=== PATIENT | male | born 1960 | race African-American/Black ===

== ENCOUNTER 2017-10-18 20:55 | Inpatient (IN) | payer OTHER ==
[2017-10-18] MEDS: SOD CHLORIDE 0.9% 1,000 ML IV (21:49)
[2017-10-18] MEDS: METOCLOPRAMIDE 10 MG INJ IV (21:49)
[2017-10-18 21:54] LABS: ADD MAN DIFF? NO
[2017-10-18 21:56] LABS: BASOPHILS % 0.4 % (0.0-2.0); EOSINOPHILS # 0.1 10^3/ul (0.0-0.5); EOSINOPHILS % 0.8 % (0.0-7.0); HEMOGLOBIN 11.6 g/dl (14.0-18.0); LYMPHOCYTES # 1.3 10^3/ul (0.8-2.9); LYMPHOCYTES % 12.4 % (15.0-51.0); MEAN CORPUSCULAR HEMOGLOBIN 28.6 pg (29.0-33.0); MEAN CORPUSCULAR HGB CONC 31.4 g/dl (32.0-37.0); MEAN CORPUSCULAR VOLUME 91.1 fl (82.0-101.0); MEAN PLATELET VOLUME 10.1 fl (7.4-10.4); MONOCYTE # 0.4 10^3/ul (0.3-0.9); MONOCYTES % 3.6 % (0.0-11.0); NEUTROPHIL # 8.9 10^3/ul (1.6-7.5); NEUTROPHILS % 82.6 % (39.0-77.0); PLATELET COUNT 347 10^3/UL (140-415); RED BLOOD COUNT 4.06 10^6/ul (4.70-6.10)
[2017-10-18 21:56] LABS: WHITE BLOOD COUNT 10.8 10^3/ul (4.8-10.8)
[2017-10-18 21:59] LABS: ADD UMIC NO; UR ASCORBIC ACID NEGATIVE (NEGATIVE); UR BILIRUBIN (Dip) NEGATIVE (NEGATIVE); UR BLOOD (Dip) NEGATIVE (NEGATIVE); UR CLARITY CLEAR (CLEAR); UR COLOR STRAW (YELLOW); UR GLUCOSE (Dip) NEGATIVE (NEGATIVE); UR KETONES (Dip) TRACE mg/dL (NEGATIVE); UR LEUKOCYTE ESTERASE (Dip) NEGATIVE Leu/ul (NEGATIVE); UR NITRITE (Dip) NEGATIVE (NEGATIVE); UR SPECIFIC GRAVITY (Dip) 1.012 (1.003-1.030); UR TOTAL PROTEIN (Dip) NEGATIVE (NEGATIVE); UR UROBILINOGEN (Dip) NEGATIVE (NEGATIVE)
[2017-10-18] MEDS: ONDANSETRON 4 MG INJ IV (21:59)
[2017-10-18 22:18] LABS: ALANINE AMINOTRANSFERASE 31 IU/L (13-69); ALBUMIN 4.9 g/dl (3.3-4.9); ALBUMIN/GLOBULIN RATIO 1.22; ALKALINE PHOSPHATASE 109 IU/L (42-121); ANION GAP 19 (8-16); ASPARTATE AMINO TRANSFERASE 38 IU/L (15-46); BILIRUBIN,INDIRECT 0.2 mg/dl (0-1.1); BILIRUBIN,TOTAL 0.2 mg/dl (0.2-1.3); BLOOD UREA NITROGEN 21 mg/dl (7-20); CARBON DIOXIDE 31 mmol/L (21-31); CHLORIDE 104 mmol/L (97-110); CREATININE 1.17 mg/dl (0.61-1.24); GLUCOSE 113 mg/dl (70-220); LIPASE 67 U/L (23-300); POTASSIUM 3.6 mmol/L (3.5-5.1); SODIUM 150 mmol/L (135-144); TOTAL PROTEIN 8.9 g/dl (6.1-8.1)
[2017-10-18 22:30] LABS: TROPONIN-I 0.015 ng/ml (0.00-0.12)
[2017-10-18] MEDS: LABETALOL HCL 20MG INJ IV (23:02)
[2017-10-19] MEDS: hydrALAzine 20 MG INJ IV ×4 (01:15→15:37)
[2017-10-19] MEDS: LABETALOL HCL 20MG INJ IV (01:44)
[2017-10-19] MEDS ORDERED: NACL 0.9% 3 ML SYG IV (02:00)
[2017-10-19] MEDS ORDERED: BISACODYL (EC) 5 MG TAB PO (02:00)
[2017-10-19] MEDS ORDERED: NITROGLYCERIN (SL) 0.4 MG TAB SL (02:00)
[2017-10-19] MEDS ORDERED: DOCUSATE SODIUM 100 MG CAP PO (02:00)
[2017-10-19] MEDS: morphine 2 MG INJ IV ×2 (05:14→15:59)
[2017-10-19] MEDS: DEXTROSE 5%-0.45% NACL 1,000 ML IV ×2 (05:32→09:29)
[2017-10-19 08:37] LABS: AMPHETAMINE/METHAMPHETAMINE Negative (NEGATIVE); BARBITURATES Negative (NEGATIVE); BENZODIAZEPINES Negative (NEGATIVE); OPIATES Negative (NEGATIVE)
[2017-10-19 08:40] LABS: CANNABINOIDS Positive (NEGATIVE); COCAINE Positive (NEGATIVE)
[2017-10-19] MEDS: SOD CHLORIDE 0.9% 100 ML (08:41)
[2017-10-19] MEDS: IOHEXOL 300MG/ML 150 ML BTL (08:41)
[2017-10-19 09:33] LABS: ADD MAN DIFF? NO
[2017-10-19 09:37] LABS: BASOPHILS % 0.1 % (0.0-2.0); HEMATOCRIT 40.7 % (42.0-52.0); HEMOGLOBIN 13.1 g/dl (14.0-18.0); LYMPHOCYTES # 0.6 10^3/ul (0.8-2.9); LYMPHOCYTES % 8.5 % (15.0-51.0); MEAN CORPUSCULAR HEMOGLOBIN 28.5 pg (29.0-33.0); MEAN CORPUSCULAR HGB CONC 32.2 g/dl (32.0-37.0); MEAN CORPUSCULAR VOLUME 88.7 fl (82.0-101.0); MEAN PLATELET VOLUME 9.9 fl (7.4-10.4); MONOCYTE # 0.1 10^3/ul (0.3-0.9); MONOCYTES % 1.6 % (0.0-11.0); NEUTROPHIL # 6.5 10^3/ul (1.6-7.5); NEUTROPHILS % 89.5 % (39.0-77.0); PLATELET COUNT 382 10^3/UL (140-415); RED BLOOD COUNT 4.59 10^6/ul (4.70-6.10)
[2017-10-19 09:37] LABS: WHITE BLOOD COUNT 7.3 10^3/ul (4.8-10.8)
[2017-10-19 10:01] LABS: CHOLESTEROL 250 mg/dl (100-200)
[2017-10-19 10:01] LABS: CHOL/HDL RATIO 2.8 RATIO; HDL CHOLESTEROL 88 mg/dl (28-71); LDL CHOLESTEROL,CALCULATED 154 mg/dl; TRIGLYCERIDES 42 mg/dl (0-149)
[2017-10-19 10:03] LABS: CREATINE KINASE 333 IU/L (23-200)
[2017-10-19 10:09] LABS: ALANINE AMINOTRANSFERASE 28 IU/L (13-69); ALBUMIN 4.9 g/dl (3.3-4.9); ALBUMIN/GLOBULIN RATIO 1.19; ALKALINE PHOSPHATASE 109 IU/L (42-121); ANION GAP 21 (8-16); ASPARTATE AMINO TRANSFERASE 35 IU/L (15-46); BILIRUBIN,INDIRECT 0.5 mg/dl (0-1.1); BILIRUBIN,TOTAL 0.5 mg/dl (0.2-1.3); BLOOD UREA NITROGEN 18 mg/dl (7-20); CARBON DIOXIDE 27 mmol/L (21-31); CHLORIDE 104 mmol/L (97-110); CREATININE 0.97 mg/dl (0.61-1.24); GLUCOSE 143 mg/dl (70-220); POTASSIUM 4.1 mmol/L (3.5-5.1); SODIUM 148 mmol/L (135-144)
[2017-10-19 10:09] LABS: B-TYPE NATRIURETIC PEPTIDE 5230 PG/ML (0-125)
[2017-10-19 10:14] LABS: ETHANOL < 10.0 mg/dl
[2017-10-19 10:14] LABS: CK INDEX 1.3; CK-MB 4.42 ng/ml (0.0-2.4); TROPONIN-I 0.028 ng/ml (0.00-0.12)
[2017-10-19 10:15] LABS: HEMOGLOBIN A1C 5.1 % (0-5.9)
[2017-10-19 10:32] LABS: THYROID STIMULATING HORMONE 0.584 MIU/L (0.465-4.680)
[2017-10-19 10:55] LABS: MAGNESIUM 1.9 mg/dl (1.7-2.5)
[2017-10-19] MEDS: LISINOPRIL 5 MG TAB PO (11:51)
[2017-10-19] MEDS: AMLODIPINE 5 MG TAB PO (11:51)
[2017-10-19 15:58] LABS: CREATINE KINASE 450 IU/L (23-200)
[2017-10-19 16:00] LABS: ANION GAP 22 (8-16); BLOOD UREA NITROGEN 21 mg/dl (7-20); CALCIUM 10.3 mg/dl (8.4-10.2); CARBON DIOXIDE 28 mmol/L (21-31); CHLORIDE 102 mmol/L (97-110); CREATININE 1.03 mg/dl (0.61-1.24); GLUCOSE 138 mg/dl (70-220); POTASSIUM 4.1 mmol/L (3.5-5.1); SODIUM 148 mmol/L (135-144)
[2017-10-19 16:11] LABS: CK INDEX 0.9; TROPONIN-I 0.025 ng/ml (0.00-0.12)
[2017-10-19 20:19] LABS: ANION GAP 18 (8-16); BLOOD UREA NITROGEN 24 mg/dl (7-20); CALCIUM 9.8 mg/dl (8.4-10.2); CARBON DIOXIDE 29 mmol/L (21-31); CHLORIDE 102 mmol/L (97-110); CREATININE 1.18 mg/dl (0.61-1.24); GLUCOSE 137 mg/dl (70-220); POTASSIUM 3.9 mmol/L (3.5-5.1); SODIUM 145 mmol/L (135-144)
[2017-10-20] MEDS: morphine 2 MG INJ IV ×4 (02:03→19:09)
[2017-10-20] MEDS: hydrALAzine 20 MG INJ IV ×2 (04:20→19:54)
[2017-10-20] MEDS: AMLODIPINE 5 MG TAB PO (09:28)
[2017-10-20] MEDS: LISINOPRIL 5 MG TAB PO (09:28)
[2017-10-20] MEDS: ONDANSETRON 4 MG INJ IV (19:09)
[2017-10-20] MEDS ORDERED: LORAZEPAM 2 MG INJ IV (23:30)
[2017-10-21] MEDS: AL HYDROX/MG HYDROX/SIMETH 30 ML CUP PO (00:44)
[2017-10-21] MEDS: morphine 2 MG INJ IV ×2 (00:45→04:46)
[2017-10-21] MEDS: ACETAMINOPHEN 325 MG TAB PO (06:41)
[2017-10-21] MEDS: LISINOPRIL 5 MG TAB PO (08:41)
[2017-10-21] MEDS: AMLODIPINE 5 MG TAB PO (08:42)
[2017-10-21 09:25] LABS: ADD MAN DIFF? NO
[2017-10-21 09:28] LABS: BASOPHILS % 0.5 % (0.0-2.0); EOSINOPHILS % 0.5 % (0.0-7.0); HEMATOCRIT 35.8 % (42.0-52.0); HEMOGLOBIN 11.4 g/dl (14.0-18.0); LYMPHOCYTES # 1.7 10^3/ul (0.8-2.9); LYMPHOCYTES % 27.7 % (15.0-51.0); MEAN CORPUSCULAR HEMOGLOBIN 28.6 pg (29.0-33.0); MEAN CORPUSCULAR HGB CONC 31.8 g/dl (32.0-37.0); MEAN CORPUSCULAR VOLUME 89.9 fl (82.0-101.0); MEAN PLATELET VOLUME 9.9 fl (7.4-10.4); MONOCYTE # 0.8 10^3/ul (0.3-0.9); NEUTROPHIL # 3.4 10^3/ul (1.6-7.5); PLATELET COUNT 327 10^3/UL (140-415); RED BLOOD COUNT 3.98 10^6/ul (4.70-6.10); RED CELL DISTRIBUTION WIDTH 13.1 % (11.5-14.5)
[2017-10-21 09:49] LABS: ANION GAP 13 (8-16); BLOOD UREA NITROGEN 35 mg/dl (7-20); CALCIUM 8.9 mg/dl (8.4-10.2); CARBON DIOXIDE 33 mmol/L (21-31); CHLORIDE 97 mmol/L (97-110); CREATININE 1.32 mg/dl (0.61-1.24); GLUCOSE 102 mg/dl (70-220); MAGNESIUM 2.3 mg/dl (1.7-2.5); PHOSPHORUS 4.6 mg/dl (2.5-4.9); POTASSIUM 3.8 mmol/L (3.5-5.1); SODIUM 139 mmol/L (135-144)
[2017-10-21 13:08] LABS: OSMOLALITY,URINE 764 mOsm/kg (250-1200)
== END 2017-10-21 11:20 | disposition home or self-care (01) | DRG 305 ==
LOC: E/R 20:55 → MS4 10-19 01:43 → E/R 20:55
DX: I16.0 Hypertensive urgency (principal); E87.0 Hyperosmolality and hypernatremia; N17.9 Acute kidney failure, unspecified; D64.9 Anemia, unspecified; F17.200 Nicotine dependence, unspecified, uncomplicated; F12.10 Cannabis abuse, uncomplicated; F14.129 Cocaine abuse with intoxication, unspecified; M19.90 Unspecified osteoarthritis, unspecified site; R07.9 Chest pain, unspecified; R10.9 Unspecified abdominal pain; Z93.3 Colostomy status
CPT/HCPCS: 36415; 71045; 74177; 80048; 80053; 80061; 80306; 80307; 81003; 82550; 82553; 83036; 83690; 83735; 83880; 83935; 84100; 84443; 84484; 85025; 93005; 93306; 96361; 96374; 96375; 96376; 99291-25

== ENCOUNTER 2017-10-31 12:12 | Emergency (ER) | payer OTHER ==
[2017-10-31] MEDS: METOCLOPRAMIDE 10 MG INJ IV (13:13)
[2017-10-31] MEDS: SOD CHLORIDE 0.9% 1,000 ML IV (13:13)
[2017-10-31] MEDS: KETOROLAC 30 MG INJ IV (13:13)
[2017-10-31 13:24] LABS: ADD MAN DIFF? NO
[2017-10-31 13:27] LABS: BASOPHIL # 0.1 10^3/ul (0.0-0.1); BASOPHILS % 0.5 % (0.0-2.0); EOSINOPHILS % 0.4 % (0.0-7.0); HEMATOCRIT 32.7 % (42.0-52.0); HEMOGLOBIN 10.7 g/dl (14.0-18.0); LYMPHOCYTES # 1.1 10^3/ul (0.8-2.9); LYMPHOCYTES % 10.2 % (15.0-51.0); MEAN CORPUSCULAR HEMOGLOBIN 29.2 pg (29.0-33.0); MEAN CORPUSCULAR HGB CONC 32.7 g/dl (32.0-37.0); MEAN CORPUSCULAR VOLUME 89.3 fl (82.0-101.0); MEAN PLATELET VOLUME 9.6 fl (7.4-10.4); MONOCYTE # 0.3 10^3/ul (0.3-0.9); MONOCYTES % 2.7 % (0.0-11.0); NEUTROPHIL # 9.4 10^3/ul (1.6-7.5); NEUTROPHILS % 85.9 % (39.0-77.0); PLATELET COUNT 405 10^3/UL (140-415); RED BLOOD COUNT 3.66 10^6/ul (4.70-6.10); RED CELL DISTRIBUTION WIDTH 13.2 % (11.5-14.5)
[2017-10-31 13:27] LABS: WHITE BLOOD COUNT 10.9 10^3/ul (4.8-10.8)
[2017-10-31 13:47] LABS: ALANINE AMINOTRANSFERASE 26 IU/L (13-69); ALBUMIN 4.6 g/dl (3.3-4.9); ALBUMIN/GLOBULIN RATIO 1.15; ALKALINE PHOSPHATASE 102 IU/L (42-121); ANION GAP 17 (8-16); ASPARTATE AMINO TRANSFERASE 33 IU/L (15-46); BILIRUBIN,INDIRECT 0.3 mg/dl (0-1.1); BILIRUBIN,TOTAL 0.3 mg/dl (0.2-1.3); BLOOD UREA NITROGEN 21 mg/dl (7-20); CALCIUM 9.4 mg/dl (8.4-10.2); CARBON DIOXIDE 28 mmol/L (21-31); CHLORIDE 103 mmol/L (97-110); CREATININE 1.13 mg/dl (0.61-1.24); GLUCOSE 120 mg/dl (70-220); LIPASE 103 U/L (23-300); POTASSIUM 3.3 mmol/L (3.5-5.1); SODIUM 145 mmol/L (135-144); TOTAL PROTEIN 8.6 g/dl (6.1-8.1)
[2017-10-31 13:59] LABS: TROPONIN-I < 0.012 ng/ml (0.00-0.12)
[2017-10-31] MEDS: POTASSIUM CHLORIDE (SR) 20 MEQ TAB PO (14:04)
[2017-10-31] MEDS: LABETALOL HCL 20MG INJ IV (14:30)
[2017-10-31] MEDS: LORAZEPAM 2 MG INJ IV (14:31)
[2017-10-31 14:32] LABS: ADD UMIC YES; UR ASCORBIC ACID NEGATIVE (NEGATIVE); UR BILIRUBIN (Dip) NEGATIVE (NEGATIVE); UR BLOOD (Dip) 1+ mg/dL (NEGATIVE); UR CLARITY CLEAR (CLEAR); UR COLOR COLORLESS (YELLOW); UR GLUCOSE (Dip) 1+ mg/dL (NEGATIVE); UR KETONES (Dip) NEGATIVE (NEGATIVE); UR LEUKOCYTE ESTERASE (Dip) NEGATIVE Leu/ul (NEGATIVE); UR NITRITE (Dip) NEGATIVE (NEGATIVE); UR RBC 1 /HPF (0-5); UR SPECIFIC GRAVITY (Dip) 1.009 (1.003-1.030); UR TOTAL PROTEIN (Dip) NEGATIVE (NEGATIVE); UR UROBILINOGEN (Dip) NEGATIVE (NEGATIVE); UR WBC 1 /HPF (0-5)
== END 2017-10-31 14:54 | disposition home or self-care (01) ==
LOC: E/R 12:12
DX: I10 Essential (primary) hypertension (principal); R10.84 Generalized abdominal pain; R11.2 Nausea with vomiting, unspecified
CPT/HCPCS: 36415; 80053; 81001; 83690; 84484; 85025; 93005; 96374; 96375; 99284-25

== ENCOUNTER 2017-10-31 17:02 | Emergency (ER) | payer OTHER ==
[2017-10-31] MEDS: ONDANSETRON 4 MG INJ IM (19:10)
[2017-10-31 20:07] LABS: ETHANOL < 10.0 mg/dl
== END 2017-10-31 21:04 | disposition home or self-care (01) ==
LOC: E/R 17:02
DX: I10 Essential (primary) hypertension (principal); F14.10 Cocaine abuse, uncomplicated; R40.2242 Coma scale, best verbal response, confused conversation, at arrival to emergency department; R40.2122 Coma scale, eyes open, to pain, at arrival to emergency department; R40.2352 Coma scale, best motor response, localizes pain, at arrival to emergency department
CPT/HCPCS: 70450; 80306; 96372; 99285-25

== ENCOUNTER 2017-11-01 16:47 | Emergency (ER) | payer SELFPAY, OTHER | END 2017-11-01 18:24 | disposition left against medical advice (07) | LOC: E/R 16:47 | DX: Z53.21 Procedure and treatment not carried out due to patient leaving prior to being seen by health care provider (principal) ==

== ENCOUNTER 2018-04-09 05:13 | Emergency (ER) | payer OTHER ==
[2018-04-09 06:36] LABS: ADD MAN DIFF? NO
[2018-04-09 06:37] LABS: WHITE BLOOD COUNT 4.5 10^3/ul (4.8-10.8)
[2018-04-09 06:37] LABS: BASOPHILS % 0.7 % (0.0-2.0); EOSINOPHILS # 0.1 10^3/ul (0.0-0.5); HEMATOCRIT 36.6 % (42.0-52.0); HEMOGLOBIN 11.4 g/dl (14.0-18.0); LYMPHOCYTES # 1.1 10^3/ul (0.8-2.9); LYMPHOCYTES % 24.4 % (15.0-51.0); MEAN CORPUSCULAR HEMOGLOBIN 28.7 pg (29.0-33.0); MEAN CORPUSCULAR HGB CONC 31.1 g/dl (32.0-37.0); MEAN CORPUSCULAR VOLUME 92.2 fl (82.0-101.0); MEAN PLATELET VOLUME 9.3 fl (7.4-10.4); MONOCYTE # 0.4 10^3/ul (0.3-0.9); MONOCYTES % 8.4 % (0.0-11.0); NEUTROPHIL # 2.9 10^3/ul (1.6-7.5); NEUTROPHILS % 64.3 % (39.0-77.0); PLATELET COUNT 312 10^3/UL (140-415); RED BLOOD COUNT 3.97 10^6/ul (4.70-6.10); RED CELL DISTRIBUTION WIDTH 13.1 % (11.5-14.5)
[2018-04-09 06:58] LABS: ALANINE AMINOTRANSFERASE 10 IU/L (13-69); ALBUMIN 4.1 g/dl (3.3-4.9); ALKALINE PHOSPHATASE 80 IU/L (42-121); ANION GAP 11 (8-16); ASPARTATE AMINO TRANSFERASE 28 IU/L (15-46); BILIRUBIN,INDIRECT 0.7 mg/dl (0-1.1); BILIRUBIN,TOTAL 0.7 mg/dl (0.2-1.3); BLOOD UREA NITROGEN 15 mg/dl (7-20); CALCIUM 9.4 mg/dl (8.4-10.2); CARBON DIOXIDE 29 mmol/L (21-31); CHLORIDE 105 mmol/L (97-110); CREATININE 1.08 mg/dl (0.61-1.24); GLUCOSE 134 mg/dl (70-220); LIPASE 36 U/L (23-300); POTASSIUM 3.8 mmol/L (3.5-5.1); SODIUM 141 mmol/L (135-144); TOTAL PROTEIN 7.8 g/dl (6.1-8.1)
[2018-04-09] MEDS: METOCLOPRAMIDE 10 MG INJ IV (07:07)
[2018-04-09] MEDS: morphine 4 MG/ML VIAL IV (07:07)
[2018-04-09 07:10] LABS: TROPONIN-I 0.016 ng/ml (0.000-0.120)
[2018-04-09 07:23] LABS: ADD UMIC YES; UR ASCORBIC ACID NEGATIVE (NEGATIVE); UR BILIRUBIN (Dip) NEGATIVE (NEGATIVE); UR BLOOD (Dip) 2+ mg/dL (NEGATIVE); UR CLARITY CLEAR (CLEAR); UR COLOR STRAW (YELLOW); UR GLUCOSE (Dip) NEGATIVE (NEGATIVE); UR KETONES (Dip) NEGATIVE (NEGATIVE); UR LEUKOCYTE ESTERASE (Dip) NEGATIVE Leu/ul (NEGATIVE); UR NITRITE (Dip) NEGATIVE (NEGATIVE); UR RBC 1 /HPF (0-5); UR SPECIFIC GRAVITY (Dip) 1.012 (1.003-1.030); UR TOTAL PROTEIN (Dip) NEGATIVE (NEGATIVE); UR UROBILINOGEN (Dip) NEGATIVE (NEGATIVE); UR WBC 1 /HPF (0-5)
== END 2018-04-09 07:48 | disposition home or self-care (01) ==
LOC: E/R 05:13
DX: R10.32 Left lower quadrant pain (principal); I10 Essential (primary) hypertension; F17.210 Nicotine dependence, cigarettes, uncomplicated
CPT/HCPCS: 36415; 74176; 80053; 81001; 83690; 84484; 85025; 93005; 96374; 96375; 99285-25